=== PATIENT | male | born 1940 | race Caucasian/White ===

== ENCOUNTER 2019-08-18 19:15 | Emergency (ER) | payer MEDICARE ==
[~2019-08-18] VITALS: Ht 162.6 cm; Wt 63.2 kg
[2019-08-18] MEDS ORDERED: MIRT-92 PO (20:13)
[2019-08-18] MEDS ORDERED: DONE10TA8 PO (20:13)
[2019-08-18] MEDS ORDERED: OMEP20 PO (20:13)
[2019-08-18] MEDS ORDERED: ALLO100T PO (20:13)
[2019-08-18] MEDS ORDERED: ROSU10TA22 PO (20:13)
[2019-08-18] MEDS ORDERED: LORA-999 PO (20:13)
[2019-08-18] MEDS ORDERED: CLOP75TA3 PO (20:13)
[2019-08-18] MEDS ORDERED: PRIM50 PO (20:13)
[2019-08-18] MEDS ORDERED: METO25 PO (20:13)
[2019-08-18] MEDS ORDERED: AMLO2.5T4 PO (20:13)
[2019-08-18] MEDS ORDERED: DIAZ5 PO (20:13)
[2019-08-18] MEDS ORDERED: AZEL137S8 NASAL (20:13)
[2019-08-18] MEDS ORDERED: OLAN10TA3 PO (20:13)
[2019-08-18] MEDS ORDERED: DIPH-654 PO (20:13)
[2019-08-18] MEDS ORDERED: TRAZ150 PO (20:13)
[2019-08-18] MEDS ORDERED: ZOLP10TA7 PO (20:13)
[2019-08-18] MEDS ORDERED: CITA-106 PO (20:13)
[2019-08-18] MEDS ORDERED: TAMS-13 PO (20:13)
[2019-08-18 20:18] LABS: BASOPHILS % (AUTO) 0.8 % (0.0-2.0); EOSINOPHILS % (AUTO) 1.7 % (1.0-6.0); HEMATOCRIT 39.5 % (41-53); HEMOGLOBIN 13.3 g/dL (13.5-17.5); LYMPHOCYTES # (AUTO) 2.1 K/uL (1.0-4.8); LYMPHOCYTES % (AUTO) 22.7 % (22.0-44.0); MEAN CORPUSCULAR HEMOGLOBIN 32.1 pg (26.0-34.0); MEAN CORPUSCULAR HGB CONC 33.7 G/dL (31.0-37.0); MEAN CORPUSCULAR VOLUME 95 fL (80-100); MONOCYTES # (AUTO) 0.6 K/uL (0.1-1.0); NEUTROPHILS # (AUTO) 6.2 K/uL (1.8-7.7); NEUTROPHILS % (AUTO) 67.8 % (40.0-70.0); PLATELET COUNT (AUTO) 186 K/uL (150-450); RED BLOOD CELL COUNT(AUTO) 4.15 MIL/uL (4.50-5.90); RED CELL DISTRIBUTION WIDTH 14.2 % (11.5-14.5)
[2019-08-18 20:30] LABS: ANION GAP 9 mmol/L (8-16); CALCIUM, TOTAL 8.6 mg/dL (8.8-10.5); CARBON DIOXIDE 28 mmol/L (22-29); CHLORIDE 103 mmol/L (98-107); CREATININE 1.11 mg/dL (0.60-1.30); GLOMERULAR FILTR. RATE CALC > 60 mL/min (>60); GLUCOSE,RANDOM 93 mg/dL (70-110); POTASSIUM 4.3 mmol/L (3.5-5.1); SODIUM SERUM 140 mmol/L (136-145); UREA NITROGEN, BLOOD 30 mg/dL (7-18)
[2019-08-18 20:35] LABS: ALANINE AMINOTRANSFERASE 26 U/L (12-78); ALBUMIN 3.5 g/dL (3.4-5.0); ALKALINE PHOSPHATASE 85 U/L (46-116); ASPARTATE AMINOTRANSFERASE 12 U/L (15-37); BILIRUBIN,TOTAL 0.2 mg/dL (0.1-1.0); TOTAL PROTEIN, SERUM 6.4 g/dL (6.4-8.2)
[2019-08-18 21:16] LABS: ACETAMINOPHEN < 2 mcg/mL (10-30)
[2019-08-18 21:33] LABS: DIGOXIN < 0.20 ng/mL (0.90-2.00); VALPROIC ACID < 3 mcg/mL (50-100)
[2019-08-18 22:01] LABS: SALICYLATE < 2.8 mg/dL (2.8-20.0)
[2019-08-19 00:30] VITALS: BP 140/60
== END 2019-08-19 01:35 | disposition home or self-care (01) ==
LOC: EMS 19:16
DX: F20.9 Schizophrenia, unspecified (principal); F32.9 Major depressive disorder, single episode, unspecified; E78.00 Pure hypercholesterolemia, unspecified; I10 Essential (primary) hypertension; Z95.1 Presence of aortocoronary bypass graft; Z79.899 Other long term (current) drug therapy; Z88.8 Allergy status to other drugs, medicaments and biological substances
CPT/HCPCS: 36415; 70450; 80053; 80162; 80164; 85025; 99285; G0480; G0481